=== PATIENT | female | born 1990 ===

== ENCOUNTER 2018-09-26 12:40 | Emergency (ER) | payer SELFPAY ==
[~2018-09-26] VITALS: Ht 160 cm; Wt 114.0 kg
[2018-09-26 15:30] VITALS: BP 132/83
[2018-09-26] MEDS ORDERED: HYDROCODONE/ACETAMINOPHEN 5/325MG TABLET PO ONE (15:30)
== END 2018-09-26 15:51 | disposition home or self-care (01) ==
LOC: ER 12:40
DX: M54.89 Other dorsalgia (principal); M79.601 Pain in right arm; R20.2 Paresthesia of skin; F17.200 Nicotine dependence, unspecified, uncomplicated; Z98.890 Other specified postprocedural states; V43.52XA Car driver injured in collision with other type car in traffic accident, initial encounter; Y93.89 Activity, other specified; Y92.89 Other specified places as the place of occurrence of the external cause; Y99.8 Other external cause status
CPT/HCPCS: 99283